=== PATIENT | female | born 1965 | race Caucasian/White ===

== ENCOUNTER 2017-12-04 15:14 | Emergency (ER) | payer OTHER ==
[~2017-12-04] VITALS: Ht 162.6 cm; Wt 70.4 kg
[2017-12-04] MEDS ORDERED: INDERAL20 MG PO (15:56)
[2017-12-04] MEDS ORDERED: MOTRIN600 MG PO (15:56)
[2017-12-04] MEDS ORDERED: VALIUM5 MG PO (15:56)
[2017-12-04 17:45] VITALS: BP 172/100
== END 2017-12-04 17:46 | disposition home or self-care (01) ==
LOC: EME 15:14
DX: S00.83XA Contusion of other part of head, initial encounter (principal); S16.1XXA Strain of muscle, fascia and tendon at neck level, initial encounter; Y04.2XXA Assault by strike against or bumped into by another person, initial encounter; I10 Essential (primary) hypertension; F17.200 Nicotine dependence, unspecified, uncomplicated; Z86.14 Personal history of Methicillin resistant Staphylococcus aureus infection
CPT/HCPCS: 70150; 72040; 99281; 99284